=== PATIENT | male | born 1980 | race Caucasian/White ===

== ENCOUNTER 2018-12-03 06:08 | Emergency (ER) | payer BC ==
[~2018-12-03] VITALS: Ht 170.2 cm; Wt 123.7 kg
[2018-12-03 06:14] VITALS: BP 160/104; PULSE 73; RESP 18; Ht 170.2 cm; Wt 123.7 kg
[2018-12-03] MEDS ORDERED: ONDANSETRON 4 MG INJ IV STA (06:46)
[2018-12-03] MEDS ORDERED: SOD CHLORIDE 0.9% 1,000 ML IV STA (06:46)
[2018-12-03] MEDS ORDERED: FAMOTIDINE 20 MG INJ IV STA (07:14)
[2018-12-03] MEDS ORDERED: LIDOCAINE/MYLANTA 40 ML BTL PO STA (07:14)
[2018-12-03] MEDS ORDERED: BELLADONNA/PHENOBARBITAL TAB PO STA (07:14)
[2018-12-03] MEDS ORDERED: KETOROLAC 15 MG INJ IV STA (07:40)
--- NOTE | 2018-12-03 08:19 | ERD ---
ER Documentation Chief Complaint Chief Complaint epigastric AP since 27 w/ n/v/chills HPI This is a 38-year-old male with a past medical history of hyperlipidemia who is presenting with acute onset cramping colicky sharp moderate epigastric and right upper quadrant abdominal pain with nausea and a few episodes of nonbilious nonbl oody vomiting. He denies constipation or diarrhea. He denies black or bloody or tarry stools. He denies dysuria or hematuria or urgency or frequency. He denies any testicular or groin tenderness. He does not have flank pain. The patient does not have a known history of gallbladder disease. He does not have a known history of GERD or gastritis or heartburn. The patient endorses eating cheese, sour cream, eggs and tortillas last night. He does not believe any of it was spoiled or undercooked. The patient's symptoms began at around 12:30 AM this morning. He does not endorse any alleviating or exacerbating factors. The patient denies feeling sick recently. The patient denies fever or chills. The patient has had no headache or vision changes. The patient does not endorse neck or back pain. The patient denies lightheadedness or dizziness. The patient has had no chest pain or trouble breathing. The patient has had no focal deficits. The patient has had no weakness or numbness or tingling to the face or extremities. ROS All systems reviewed and are negative except as per history of present illness. Allergies Allergies: Coded Allergies: No Known Allergy (Unverified , 12/03/18) PMhx/Soc Medical and Surgical Hx: pt denies Medical Hx, pt denies Surgical Hx History of Surgery: Yes (Hyperlipidemia testicular surgery) Anesthesia Reaction: No Hx Neurological Disorder: No Hx Respiratory Disorders: No Hx Cardiac Disorders: Yes Hx Miscellaneous Medical Probl: No Hx Alcohol Use: No Hx Substance Use: No Hx Tobacco Use: No Smoking Status: Never smoker FmHx Family History: No diabetes Physical Exam Vitals Vital Signs Date Temp Pulse Resp B/P (MAP) Pulse Ox O2 O2 Flow FiO2 Time Delivery Rate 12/03/18 97.6 73 18 160/104 98 06:14 (122) Physical Exam Const: No acute distress Head: Atraumatic Eyes: Normal Conjunctiva ENT: Normal External Ears, Nose and Mouth. Neck: Full range of motion. No meningismus. Resp: Clear to auscultation bilaterally Cardio: Regular rate and rhythm, no murmurs Abd: Soft, non distended. Right upper quadrant and epigastric tenderness to palpation. No guarding or rebound. Normal bowel sounds Skin: No petechiae or rashes Back: No midline or flank tenderness Ext: No cyanosis, or edema Neur: Awake and alert Psych: Normal Mood and Affect Result Diagram: 12/03/18 0646 12/03/18 0646 Results 24 hrs Laboratory Tests Test 12/03/18 06:46 White Blood Count 12.0 10^3/ul Red Blood Count 4.97 10^6/ul Hemoglobin 14.3 g/dl Hematocrit 44.2 % Mean Corpuscular Volume 88.9 fl Mean Corpuscular Hemoglobin 28.8 pg Mean Corpuscular Hemoglobin Concent 32.4 g/dl Red Cell Distribution Width 12.7 % Platelet Count 301 10^3/UL Mean Platelet Volume 10.0 fl Immature Granulocytes % 0.700 % Neutrophils % 81.7 % Lymphocytes % 12.3 % Monocytes % 4.4 % Eosinophils % 0.5 % Basophils % 0.4 % Nucleated Red Blood Cells % 0.0 /100WBC Immature Granulocytes # 0.090 10^3/ul Neutrophils # 9.8 10^3/ul Lymphocytes # 1.5 10^3/ul Monocytes # 0.5 10^3/ul Eosinophils # 0.1 10^3/ul Basophils # 0.1 10^3/ul Nucleated Red Blood Cells # 0.0 10^3/ul Urine Color YELLOW Urine Clarity CLEAR Urine pH 7.0 Urine Specific [place] 1.032 Urine Ketones NEGATIVE mg/dL Urine Nitrite NEGATIVE mg/dL Urine Bilirubin NEGATIVE mg/dL Urine Urobilinogen 1+ mg/dL Urine Leukocyte Esterase NEGATIVE Brock/ul Urine Microscopic RBC 5 /HPF Urine Microscopic WBC 1 /HPF Urine Hemoglobin NEGATIVE mg/dL Urine Glucose NEGATIVE mg/dL Urine Total Protein 1+ mg/dl Sodium Level 146 mmol/L Potassium Level 5.0 mmol/L Chloride Level 105 mmol/L Carbon Dioxide Level 30 mmol/L Anion Gap 11 Blood Urea Nitrogen 19 mg/dl Creatinine 1.05 mg/dl Est Glomerular Filtrat Rate mL/min > 60 mL/min Glucose Level 145 mg/dl Calcium Level 9.8 mg/dl Total Bilirubin 0.4 mg/dl Direct Bilirubin 0.00 mg/dl Indirect Bilirubin 0.4 mg/dl Aspartate Amino Transf (AST/SGOT) 39 IU/L Alanine Aminotransferase (ALT/SGPT) 56 IU/L Alkaline Phosphatase 100 IU/L Total Protein 8.4 g/dl Albumin 4.8 g/dl Globulin 3.60 g/dl Albumin/Globulin Ratio 1.33 Lipase 166 U/L Current Medications Medications Dose Sig/Amber Start Time Status Last (Trade) Ordered Route PRN Stop Time Admin Dose Reason Admin Sodium 1,000 ml @ Q1H STAT 12/03/18 DC 12/03/18 Chloride 1,000 mls/hr IV 06:46 12/03/18 06:59 07:45 Ondansetron 4 mg ONCE STAT 12/03/18 DC 12/03/18 HCl (Zofran IV 06:46 12/03/18 06:59 Inj) 06:48 Famotidine 20 mg ONCE STAT 12/03/18 DC 12/03/18 (Pepcid Iv) IV 07:14 12/03/18 07:23 07:15 40 ml ONCE STAT 12/03/18 DC 12/03/18 Miscellaneous PO 07:14 12/03/18 07:23 Medication 07:15 (Gi Cocktail (2)) Belladonna/ 2 tab ONCE STAT 12/03/18 DC 12/03/18 Phenobarbital PO 07:14 12/03/18 07:23 () 07:15 Ketorolac 15 mg ONCE STAT 12/03/18 DC 12/03/18 Tromethamine IV 07:40 12/03/18 07:55 (Toradol) 07:41 Fentanyl 50 mcg ONCE ONCE 12/03/18 DC 12/03/18 (Sublimaze) IV 08:30 12/03/18 09:23 08:46 Procedures/MDM MDM The patient's presentation warrants further investigation. Previous medical records, if available, were reviewed. LABS The patient's laboratory testing was obtained and reviewed. No emergent treatment was required unless described below. CBC: Mild leukocytosis, potentially reactive, decreased clinical suspicion for a systemic infection. No E/o anemia or thrombocytopenia Chemistry: No E/o severe acidosis or alkalosis or renal failure or liver disease or diabetic ketoacidosis Lipase: No E/o pancreatitis Urine: No E/o acute infection or hematuria EKG EKG read by me: Rate/Rhythm: Regular rate and rhythm at a rate of 72 bpm Intervals: Normal [place]: Normal Impression: No evidence of acute ischemia or arrhythmia IMAGING Imaging and Radiology interpretation reviewed. Ultrasound gallbladder FINDINGS: The liver demonstrates increased echogenicity. The liver is enlarged in size and no focal solid lesions are seen. The liver measures 20.7 cm in length. The portal vein is patent with normal direction of flow. No intrahepatic biliary dilatation is seen. Multiple calcified gallstones are identified within the gallbladder. There is no pericholecystic fluid or gallbladder wall thickening. The common bile duct measures 5 mm in maximal dimension. The pancreas is not well seen due to overlying bowel gas. No free fluid is identified. The right kidney is normal in size, and demonstrate normal echogenicity and cortical thickness. The right kidney measures 13.6 cm in long dimension. There is no evidence of hydronephrosis. There are no kidney stones. IMPRESSION: Fatty infiltration of the liver. Hepatomegaly. Cholelithiasis. Electronically viewed and signed by .Luis Gamez MD, MD on 12/03/2018 09:18 TREATMENT/DISPOSITION The patient presents with right upper quadrant and epigastric pain. The patient's ultrasound does reveal gallstones, and I do have high suspicion for biliary colic. Gastritis versus PUD versus GERD are also certainly possibilities. The patient was initially treated with IV fluids and Zofran. This did help improve his nausea, but his pain persisted. The patient was treated with Pepcid and a GI cocktail which only allowed for minimal relief. The patient was later given a dose of Toradol and ultimately fentanyl with improvement of his symptoms. I do not see evidence of cholecystitis at this time. There is no evidence of obstructive cholestatic disease. I do not feel the patient requires admission currently. That said, he does require outpatient follow-up. The patient does not have any evidence of peritonitis. The patient does not have clinical symptoms concerning for mesenteric ischemia or ischemic colitis. The patient's lipase is normal. The patient does not have left upper quadrant tenderness. I have low suspicion for pancreatitis. The patient does not have any right lower quadrant tenderness, or periumbilical tenderness. I have low suspicion for appendicitis. The patient does not have suprapubic tenderness. I have decreased suspicion for cystitis. The patient does not have any left lower quadrant tenderness, and I have low suspicion for diverticulosis or diverticulitis. The patient does not have any flank tenderness. The patient does not have gross hematuria. I have decreased suspicion for nephrolithiasis or renal colic. The patient does not have any palpable pulsatile mass or severe abdominal pain radiating to the back. I have low suspicion for aortic aneurysm, dissection or rupture. DISCHARGE Upon reevaluation of the patient, symptoms have improved. No emergent diagnoses were identified. At this time, I feel that the patient stable for discharge. The patient was instructed to follow-up with a primary care physician in 1-3 days. The patient will be given strict precautions with which to return to the emergency department. Prescriptions: Ibuprofen, Zofran The patient's blood pressure was elevated at greater than 120/80 while in the emergency department. The patient was otherwise stable with no evidence of hypertensive urgency or emergency. The patient does not require admission for blood pressure control. I have discussed with the patient the risks of hypertension. I have instructed the patient to return to the ER for any new or worsening symptoms including chest pain, shortness of breath, headache, blurred vision, confusion, nausea, vomiting or LOC. I have advised the patient to follow up with the primary care physician for outpatient monitoring and treatment for hypertension in 1-3 days. Disclaimer: Inadvertent spelling and grammatical errors are likely due to EHR/dictation software use and do not reflect on the overall quality of patient care. Note that the electronic time recorded on this note does not necessarily reflect the actual time of the patient encounter. Departure Diagnosis: Primary Impression: Biliary colic Additional Impressions: Cholelithiasis Cholelithiasis location: gallbladder Cholecystitis presence: without cholecystitis Biliary obstruction: without biliary obstruction Qualified Codes: K80.20 - Calculus of gallbladder without cholecystitis without obstruction Abdominal pain Abdominal location: upper abdomen, unspecified Qualified Codes: R10.10 - Upper abdominal pain, unspecified Nausea & vomiting Vomiting type: unspecified Vomiting Intractability: non-intractable Qualified Codes: R11.2 - Nausea with vomiting, unspecified Leukocytosis Leukocytosis type: unspecified Qualified Codes: D72.829 - Elevated white blood cell count, unspecified Condition: Stable Patient Instructions: Gallstones, Nausea and Vomiting-Adult, Abdominal Pain Additional Instructions: Thank you for for coming to [facility] for your care today. Please ask your nurse or provider if you have questions about your care today and do not leave until all your questions have been answered. Please use any me dications given as directed and follow-up with your doctor (or the doctor you were referred to) in the next 1-3 days. If you do not have a primary care doctor you may follow up [place] [facility] [place] [facility] (listed below). You may also use motrin and tylenol as needed for fever and/or pain unless instructed otherwise by your provider or nurse. Indications for more urgent follow-up have been discussed, but you may return to the Emergency Department at ANY time for any worrisome or worsening symptoms. If you have abdominal pain, please know that no test or exam you received is perfect and you should follow up within 8 hours for continued pain. If you had any imaging studies today, such as an X-Ray or CT Scan, these studies will be reviewed later by a radiologist. You will be called if there are important findings that were not identified today, so make sure the contact information you provided at registration is correct. If you received any narcotic pain control medicine today, such as Vicodin, Morphine or Dilaudid, your coordination and judgment may be affected for a n umber of hours. Please do not drive or operate heavy machinery, and you may want someone to assist you at home. If you were given a prescription for narcotic medication, be aware that it is very addictive- use sparingly and only if necessary. PLEASE SEEK FURTHER EVALUATION AND MANAGEMENT AT YOUR DOCTORS OFFICE WITHIN THE NEXT 1-3 DAYS. IT IS YOUR RESPONSIBILITY TO MAKE AN APPOINTMENT FOR FOLOW-UP CARE. IF YOU HAVE A PRIMARY DOCTOR, PLEASE CALL THEIR OFFICE TO SCHEDULE AN APPOINTMENT FOR FOLLOW UP. IF YOU DO NOT HAVE A PRIMARY DOCTOR YOU CAN CALL OUR PHYSICIAN REFERRAL HOTLINE AT IF YOU CAN NOT AFFORD TO SEE A PHYSICIAN YOU CAN CHOSE FROM THE FOLLOWING [facility] CLINICS: [facility] [id number] [facility] [address] [facility] [address] [facility] [address] [facility] [address] [address] [facility]. [address] LETY MORGAN MD December 03, 2018 08:17
[2018-12-03] MEDS ORDERED: FENTAnyl 50 MCG/ML VIAL IV ONE (08:30)
[2018-12-03] MEDS ORDERED: IBUP-1542 PO (09:45)
[2018-12-03] MEDS ORDERED: ONDA8TAB9 PO (09:45)
== END 2018-12-03 10:23 | disposition home or self-care (01) ==
LOC: E/R 06:08
DX: K80.20 Calculus of gallbladder without cholecystitis without obstruction (principal); D72.829 Elevated white blood cell count, unspecified
CPT/HCPCS: 36415; 76705; 80053; 81001; 83690; 85025; 96374; 96375; 99285; J1885; J2405; J3010; J7030; Z7610